=== PATIENT | male | born 1945 | race Caucasian/White ===

== ENCOUNTER 2021-02-16 06:57 | Day surgery (SDC) | payer MEDICARE, BC ==
[2021-02-15 16:44] LABS: APTT 27 SECONDS (22-32)
[2021-02-15 16:51] LABS: ALANINE AMINOTRANSFERASE 32 U/L (12-78); ALBUMIN 4.1 G/DL (3.4-5.0); ALBUMIN/GLOBULIN RATIO 1.2 (1.1-1.5); ALKALINE PHOSPHATASE 60 IU/L (46-116); ANION GAP 8 (8-16); ASPARTATE AMINO TRANSFERASE 24 U/L (10-37); BASOPHILS # (AUTO) 0.1 X10'3 (0-0.2); BASOPHILS % (AUTO) 0.9 % (0-1); BILIRUBIN,TOTAL 0.4 MG/DL (0.1-1.0); BLOOD UREA NITROGEN 27 MG/DL (7-18); BUN/CREATININE RATIO 23.1 (5.4-32.0); CHLORIDE 106 MMOL/L (99-107); CREATININE 1.17 MG/DL (0.60-1.10); EOSINOPHILS # (AUTO) 0.2 X10'3 (0-0.9); EOSINOPHILS % (AUTO) 2.7 % (0-6); GLUCOSE 88 MG/DL (70-104); HEMATOCRIT 33.8 % (42.0-52.0); HEMOGLOBIN 11.7 g/dl (14.0-17.9); LYMPHOCYTES % (AUTO) 25.6 % (21-51); MEAN CORPUSCULAR HEMOGLOBIN 33.4 PG (27.0-31.0); MEAN CORPUSCULAR HGB CONC 34.6 g/dL (33.0-36.5); MEAN CORPUSCULAR VOLUME 96.5 FL (78-98); MEAN PLATELET VOLUME 7.8 FL (7.4-10.4); MONOCYTES # (AUTO) 0.6 X10'3 (0-0.9); MONOCYTES % (AUTO) 7.4 % (2-12); NEUTROPHILS # (AUTO) 4.9 X10'3 (1.8-7.7); NEUTROPHILS % (AUTO) 63.4 % (42-75); PLATELET COUNT 265 X10'3 (140-440); POTASSIUM 4.4 MMOL/L (3.5-5.1); RED CELL DISTRIBUTION WIDTH 12.9 % (11.5-14.5); SODIUM 142 MMOL/L (135-145); TOTAL CARBON DIOXIDE 28.2 MMOL/L (24-32); TOTAL PROTEIN 7.5 G/DL (6.4-8.2); WHITE BLOOD COUNT 7.6 X10'3 (4.5-11.0); eGFR 60 ML/MIN
[2021-02-16] VITALS (10 sets, daily range): BP systolic 117–151; BP diastolic 59–79
[~2021-02-16] VITALS: Ht 182.9 cm; Wt 91.9 kg
[2021-02-16] MEDS ORDERED: diphenhydrAMINE 25mg capsule PO PRN (07:20)
[2021-02-16] MEDS ORDERED: LORazepam 0.5 MG tablet PO PRN (07:20)
[2021-02-16] MEDS ORDERED: normal saline 1,000 ML IV SCH (07:20)
[2021-02-16] MEDS ORDERED: nitroGLYCERIN 0.4mg SUBLingual tab SL PRN (07:20)
[2021-02-16] MEDS ORDERED: ASPI81TA52 PO (07:56)
[2021-02-16] MEDS ORDERED: OMEP40CA21 PO (07:56)
[2021-02-16] MEDS ORDERED: ATOR10TA70 PO (07:56)
[2021-02-16] MEDS ORDERED: LOSA25TA96 PO (07:56)
[2021-02-16] MEDS ORDERED: DUTA0.5C36 PO (07:56)
[2021-02-16] MEDS ORDERED: NAPR220T67 PO (07:56)
[2021-02-16] MEDS ORDERED: midazolam 1 mg/ML 2ml injection ONE (08:52)
[2021-02-16] MEDS ORDERED: fentaNYL/PF 50MCG/1 ML 2ML syringe ONE (08:52)
[2021-02-16] MEDS ORDERED: iohexol 350MG/ML 100ml bottle IV ONE (08:52)
[2021-02-16] MEDS ORDERED: iohexol 350 MG/ML 50ML vial IV ONE (08:52)
[2021-02-16] MEDS ORDERED: LIDOcaine 1% (10mg/ml)w/preservative injection 20ml MDV ONE (08:52)
[2021-02-16] MEDS ORDERED: ondansetron/PF 4mg/2ml inj IV PRN (10:30)
[2021-02-16] MEDS ORDERED: normal saline 1000ml 1,000 ML IV SCH (10:30)
[2021-02-16] MEDS ORDERED: proCHLORperazine 10 MG/2 ml inj IV PRN (10:30)
[2021-02-16] MEDS ORDERED: HYDROcodone/acetaminophen 10/325mg tab PO PRN (10:30)
[2021-02-16] MEDS ORDERED: OXAZEpam 15mg capsule PO PRN (10:30)
[2021-02-16] MEDS ORDERED: HYDROcodone/acetaminophen 5mg/325mg tablet PO PRN (10:30)
== END 2021-02-16 16:05 | disposition home or self-care (01) ==
LOC: SSTAY O 06:57
PROVIDERS: ATTEND Internal Medicine Cardiovascular Disease
DX: R94.39 Abnormal result of other cardiovascular function study (principal); I25.119 Atherosclerotic heart disease of native coronary artery with unspecified angina pectoris; I49.5 Sick sinus syndrome; E78.5 Hyperlipidemia, unspecified; I10 Essential (primary) hypertension; N40.0 Benign prostatic hyperplasia without lower urinary tract symptoms; M35.3 Polymyalgia rheumatica; Z79.01 Long term (current) use of anticoagulants; Z98.41 Cataract extraction status, right eye; Z98.42 Cataract extraction status, left eye; Z87.891 Personal history of nicotine dependence; Z79.82 Long term (current) use of aspirin; Z79.899 Other long term (current) drug therapy
CPT/HCPCS: 36415; 71046; 80053; 85025; 85610; 85730; 93458; 99152; C1760; C1769; J1644; J2250; J3010; J3490; J7030; Q0163; Q9967; 99153; A4620; A6258

== ENCOUNTER 2023-12-07 07:27 | Outpatient (CLI) | payer MEDICARE, BC ==
[~2023-12-07 07:27] MED LIST: ASPI81TA52 PO; ATOR10TA70 PO; DUTA0.5C36 PO; LOSA-415 PO; NAPR220T67 PO; OMEP40CA21 PO
== END 2023-12-07 23:59 | disposition home or self-care (01) ==
LOC: VAS 07:27
PROVIDERS: ATTEND Podiatrist Foot & Ankle Surgery
DX: S86.311A Strain of muscle(s) and tendon(s) of peroneal muscle group at lower leg level, right leg, initial encounter (principal); M79.671 Pain in right foot; M25.374 Other instability, right foot; I87.2 Venous insufficiency (chronic) (peripheral); X58.XXXA Exposure to other specified factors, initial encounter; Y93.89 Activity, other specified; Y92.89 Other specified places as the place of occurrence of the external cause; Y99.8 Other external cause status
CPT/HCPCS: 93970